=== PATIENT | male | born 1960 | race Hispanic/Latino ===

== ENCOUNTER 2025-04-18 14:23 | Emergency (ER) | payer MEDICARE ==
[2025-04-18 15:23] LABS: Bacteria/HPF None Seen HPF (None Seen); CAUTI Indications for Culture Pelvic or flank pain; Glucose, Urine (Dipstick) Normal (Negative); Leukocyte Negative Leu/uL (Negative); Protein, Urine (Dipstick) Negative (Neg-Trace); RBC/HPF 0-3 HPF (0-3); Specific Gravity, Urine 1.024 (1.002-1.036); WBC/HPF 0-3 HPF (0-3)
[2025-04-18 15:25] LABS: Urine Culture Reflex No No
== END 2025-04-18 15:50 | disposition home or self-care (01) ==
LOC: ERS 14:23
DX: N40.0 Benign prostatic hyperplasia without lower urinary tract symptoms (principal); R82.81 Pyuria
CPT/HCPCS: 81001; 99283